=== PATIENT | female | born 1960 | race American Indian/Alaskan Native ===

== ENCOUNTER 2017-04-05 16:09 | Emergency (ER) | payer SELFPAY ==
[2017-04-05] MEDS ORDERED: FLEXERIL PO ONE (17:35)
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
[2017-04-05] MEDS ORDERED: NORCO 5/325 PO ONE (18:00)
--- NOTE | 2017-04-05 18:58 | Cat Scan Report ---
FINAL REPORT EXAM: CT CERVICAL SPINE WO CON HISTORY: Trauma TECHNIQUE: Standard CT cervical spine obtained at 2.5 millimeter axial increments. Coronal and sagittal reconstruction was also performed. PRIORS: None. FINDINGS: The vertebral bodies are intact. There is no evidence for acute fracture. There is no evidence for paravertebral soft tissue swelling. Alignment is maintained. There is severe disc space narrowing at C5-C6 with large spurs anteriorly and posteriorly at that level. 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 Clinical correlation with any signs/symptoms such as neck pain, torticollis, or myelopathy is needed. IMPRESSION: 1. no acute abnormality of the cervical spine. 2. severe degenerative disc narrowing at C5-C6. 3. congenital split atlas configuration of C1.
--- NOTE | 2017-04-05 19:00 | Cat Scan Report ---
FINAL REPORT EXAM: CT HEAD/BRAIN WO CON HISTORY: Trauma TECHNIQUE: Standard unenhanced CT of the head at 5.0 millimeter axial increments. PRIORS: None. FINDINGS: The ventricular system is normal in size and configuration. There is no evidence for parenchymal volume loss. There is no evidence for mass lesion, mass effect, midline shift, acute intracranial hemorrhage, or acute ischemia/ infarction. No evidence for acute skull fracture is seen. No abnormality in the overlying scalp soft tissues is seen. Visualized paranasal sinuses are clear. 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 IMPRESSION: Negative CT of the head. No acute intracranial process noted. 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
--- NOTE | 2017-04-05 19:10 | XRay Report ---
FINAL REPORT EXAM: XR FINGER(S) 2+V LT HISTORY: thumb pain TECHNIQUE: AP, lateral, and oblique views of the left thumb PRIORS: None. FINDINGS: There is an acute nondisplaced fracture involving the base of the left 1st distal phalanx along its volar aspect. Fracture line extends to the proximal articular surface. Overlying soft tissue swelling is seen. There is no evidence for dislocation. No radiopaque foreign bodies are seen. Bony mineralization is normal and joint spaces are maintained. IMPRESSION: Acute nondisplaced fracture involving the base of the 1st distal phalanx along volar aspect.
[2017-04-05 19:34] VITALS: BP 169/110
== END 2017-04-05 19:38 | disposition home or self-care (01) ==
LOC: ED 16:09
DX: S63.682A Other sprain of left thumb, initial encounter (principal); M19.90 Unspecified osteoarthritis, unspecified site; I10 Essential (primary) hypertension; E11.9 Type 2 diabetes mellitus without complications; F17.210 Nicotine dependence, cigarettes, uncomplicated; E78.5 Hyperlipidemia, unspecified; Z86.73 Personal history of transient ischemic attack (TIA), and cerebral infarction without residual deficits; V43.52XA Car driver injured in collision with other type car in traffic accident, initial encounter; Y93.89 Activity, other specified; Y92.89 Other specified places as the place of occurrence of the external cause; Y99.8 Other external cause status
CPT/HCPCS: 70450; 72125; 99284

== ENCOUNTER 2018-02-16 07:36 | Emergency (ER) | payer SELFPAY ==
[2018-02-16 08:14] VITALS: BP 160/108
[2018-02-16 09:19] LABS: Basophils # (Auto) 0.1 K/mm3 (0.0-0.1); Basophils % (Auto) 0.9 % (0.0-1.8); Eosinophils % (Auto) 0.2 % (0.0-4.3); Hematocrit 44.7 % (30.3-42.9); Hemoglobin 15.1 gm/dl (10.1-14.3); Lymphocytes # (Auto) 1.6 K/mm3 (1.2-5.4); Lymphocytes % (Auto) 18.8 % (13.4-35.0); Mean Corpuscular HGB Conc 34 % (30-34); Mean Corpuscular Hemoglobin 27 pg (28-32); Mean Corpuscular Volume 80 fl (79-97); Monocytes # (Auto) 0.3 K/mm3 (0.0-0.8); Monocytes % (Auto) 3.2 % (0.0-7.3); Platelet Count 197 K/mm3 (140-440); Red Blood Count 5.57 M/mm3 (3.65-5.03); Red Cell Distribution Width 18.5 % (13.2-15.2)
[2018-02-16 09:24] LABS: Bilirubin,Urine NEG (Negative); Blood,Urine SM (Negative); Color,Urine Yellow (Yellow); Mucus,Urine FEW /HPF; Urobilinogen,Urine < 2.0 mg/dL (<2.0)
[2018-02-16 09:38] LABS: Alanine Aminotransferase 12 units/L (7-56); Albumin 4.3 g/dL (3.9-5); BUN/Creatinine Ratio 21; Blood Urea Nitrogen 17 mg/dL (7-17); Calcium 9.4 mg/dL (8.4-10.2); Hemolysis Index 4
[2018-02-16] MEDS ORDERED: ZOFRAN IV ONE (09:48)
[2018-02-16] MEDS ORDERED: MORPHINE IV ONE (09:48)
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
--- NOTE | 2018-02-16 11:07 | Cat Scan Report ---
CT ABDOMEN PELVIS WITH CONTRAST: HISTORY: abdominal pain. COMPARISON: none. TECHNIQUE: Helical CT in 1.25mm intervals following IV contrast. Sagittal and coronal reconstructions. FINDINGS: Lung bases: Normal. Liver: Normal. Biliary system: Mild biliary prominence is suspected. The common bile duct measures 8.6 mm in diameter. The gallbladder is not distended but there is mild diffuse gallbladder wall edema. No obvious cholelithiasis on CT. Pancreas: Normal. Spleen: Normal. Kidneys/ureters/bladder: Normal. Adrenal glands: Normal. Aorta: Normal. Intestines: There are a few scattered diverticula in the distal colon. No acute inflammatory changes or obstruction. Appendix: Normal. Pelvic viscera: Normal. Ascites: Trace pelvic ascites which is probably physiologic. Adenopathy: None. Musculoskeletal: Intact. Previous ventral wall hernia changes are suspected. No recurrent hernia is appreciated. IMPRESSION: Mild biliary prominence. Correlate for biliary symptoms. See above. Mild diverticulosis of the distal colon. Ventral hernia repair appears intact.
== END 2018-02-16 12:35 | disposition home or self-care (01) ==
LOC: ED 07:36
DX: R10.33 Periumbilical pain (principal); R11.0 Nausea; R45.83 Excessive crying of child, adolescent or adult; I10 Essential (primary) hypertension; E11.9 Type 2 diabetes mellitus without complications; F17.200 Nicotine dependence, unspecified, uncomplicated; Z79.899 Other long term (current) drug therapy; Z86.73 Personal history of transient ischemic attack (TIA), and cerebral infarction without residual deficits
CPT/HCPCS: 36415; 74177; 80053; 81001; 85025; 96374; 96375; 99284; J2270; J2405; Q9967